=== PATIENT | female | born 1940 | race Caucasian/White ===

== ENCOUNTER 2025-01-15 06:32 | Day surgery (SDC) | payer MEDICARE, SELFPAY ==
[2025-01-15] VITALS (16 sets, daily range): BP systolic 138–165; BP diastolic 71–117; BMI 26.3
[2025-01-15 07:29] LABS: % Basophils 1.2 % (0-2); % Eosinophils 5.6 % (0-6); % Immature Granulocytes 0.5 % (0-0.5); % Lymphocytes 25.3 % (20.5-51.1); % Monocytes 11.4 % (1.7-9.3); Absolute Basophils 0.1 10^3/uL (0-0.2); Absolute Eosinophils 0.4 10^3/uL (0-0.7); Absolute Lymphocytes 1.7 10^3/uL (1.2-3.4); Absolute Monocytes 0.8 10^3/uL (0.1-0.6); Absolute Neutrophils 3.7 10^3/uL (1.4-6.5); Hemoglobin 11.9 g/dL (12.0-16.0); Mean Corp Hgb Conc. 33.1 g/dL (33.0-37.0); Mean Corpuscular Hgb 32.8 pg (27.0-31.0); Mean Corpuscular Volume 99.2 fL (81.0-99.0); Nucleated Red Blood Cells % 0 %; Platelet Count 272 10^3/uL (130-400); Red Blood Cell Count 3.63 10^6/uL (4.20-5.40); Red Cell Dist. Width 13.2 % (11.5-14.5); White Blood Cell Count 6.6 10^3/uL (4.8-10.8)
[2025-01-15] MEDS: LOW STRENGTH ASPIRIN 81 MG PO (07:32)
[2025-01-15 07:41] LABS: ALT (SGPT) 15 U/L (0-35); AST (SGOT) 26 U/L (14-36); Albumin 3.5 g/dl (3.5-5.0); Alkaline Phosphatase 58 U/L (38-126); Blood Urea Nitrogen 25 mg/dl (7-17); Calcium 9.3 mg/dl (8.4-10.2); Carbon Dioxide 27 mmol/L (22-30); Chloride 109 mmol/L (98-107); Estimated Creatinine Clearance 52 ml/min; Glucose 98 mg/dl (70-99); Sodium 142 mmol/L (135-145); Total Bilirubin 0.6 mg/dl (0.2-1.3); Total Protein 6.7 g/dl (6.3-8.2); eGFR > 60.00
[2025-01-15 08:28] LABS: ACT-LR - POC 292 Seconds (116-155)
[2025-01-15 08:53] LABS: ACT-LR - POC 385 Seconds (116-155)
[2025-01-15 09:16] LABS: ACT-LR - POC 226 Seconds (116-155)
[2025-01-15] MEDS: NSS 1000 IV (09:35)
--- NOTE | 2025-01-15 09:37 | ITS.CL.ANGIO ---
C[facility]orter - Angioplasty
Angioplasty
Procedure Report:
LEFT HEART CATHETERIZATION
Date of Procedure: January 15, 2025
Procedures performed:
1: Coronary angiography
2: Left ventricular hemodynamic assessment
3: Invasive physiologic lesion assessment of the left anterior descending artery
4: Percutaneous coronary intervention of the left anterior descending artery with angioplasty and placement of a 3.5 x 28 mm drug-eluting stent postdilated at high pressure with a 3.75 mm diameter noncompliant balloon
Primary Care Physician: Dr. Lady Wheeler
Primary Commercial Ocean Clammer: Dr. Beck Keenan
INDICATION: The patient is an 84-year-old woman with a past medical history significant for hypertension, rheumatoid arthritis, and new shortness of breath and dyspnea on exertion since COVID infection a few months ago. Echocardiography showed a
new LAD wall motion abnormality and EKG showed deep anterior T waves concerning for Wellen sign. She is referred for coronary angiography.
ACCESS: The patient was prepped and draped in usual sterile fashion. A 6 Romanian sheath was placed in the right radial artery using the Seldinger over the wire technique.
HEMODYNAMIC FINDINGS (mmHg):
LV(s/d,EDP): 148/9, 14
Ao(s/d,m): 148/74, 104
ANGIOGRAPHIC FINDINGS:
Single-plane Left Ventriculography in GOMEZ Projection: Not done.
Coronary Angiography:
Dominance: Right
Left Main: Normal
Left Anterior Descending: The left anterior descending artery is a large-caliber vessel that is also fairly calcified with proximal and midportion. There is a smooth proximal 30% with an eccentric calcified 60% before the takeoff of a large widely
patent diagonal branch. The mid and distal LAD have only mild luminal irregularities with normal flow.
Left Circumflex: The left circumflex is a large nondominant vessel that gives rise to 2 very large obtuse marginal branches that are widely patent with mild luminal irregularities.
Right Coronary: The right coronary artery is a large-caliber dominant vessel that gives rise to a large caliber posterior descending artery and smaller posterior left ventricular branch system. The RCA is heavily calcified throughout the AV groove
however there are no areas of more than 30% nonobstructive disease. All distal vessels have normal flow.
Physiologic lesion assessment: In light of the borderline angiographic appearance of the left anterior descending artery I chose to perform physiologic lesion assessment. The patient was pretreated with aspirin. Unfractionated heparin was given.
A 6 Romanian XB 3.5 guiding catheter was used to engage the left main. A pressure wire was advanced with the transducer positioned in the normal-appearing mid LAD. The IFR was measured at 0.86 serially consistent with flow-limiting disease.
Pullback showed the gradient was mostly at the focal lesion but there was also some gradient in the proximal LAD. In light of this I chose to proceed with an intervention of the proximal LAD disease.
Percutaneous Coronary Intervention (PCI): A short BMW wire was advanced across the lesion and predilation was performed with a 2.5 x 20 mm balloon. A Guideliner 6 Romanian was used to help deliver a 3.5 x 28 mm Xience drug-eluting stent which was
deployed to 14 williams. Next a 3.75 mm diameter noncompliant balloon was used to post dilate the stent distally at 16 williams and at 18 williams in the mid and ostial portion. Care was taken to stay within the stented margins. A loading dose of clopidogrel
600 mg was given on the table at the end of the procedure.
FINAL RESULT: 0% in-stent residual stenosis with an outstanding angiographic result and MAN-3 flow in all vessels.
Fluoroscopy Time (min): 18.7
Radiation Dose (mGy): 758
DAP (Gy.cm2): 44
Closure device: None. A TR band was applied for hemostasis at the right wrist.
Complications: None.
ASSESSMENT:
1: Successful PCI of the LAD with placement of a drug-eluting stent guided by physiologic lesion assessment as described above.
2: Normal left ventricular filling pressures.
CONCLUSIONS and RECOMMENDATIONS:
1: Routine post drug-eluting stent placement medical therapy and monitoring. The patient will need dual antiplatelet therapy with aspirin and Plavix ideally uninterrupted for a year and aspirin 81 mg daily indefinitely. I will switch omeprazole to
pantoprazole given the possible interaction with clopidogrel. Stop Imdur. Start statin therapy atorvastatin 40 mg daily
2: Routine clinical follow-up with Dr. Keenan as scheduled. Suggest repeating echocardiography in 6 weeks to reassess LV function post stenting.
Charmaine Anderson M.D.
Copy to: Dr. Lady Wheeler
--- NOTE | 2025-01-15 13:55 | W.PN.UPDATE ---
Update Note
Progress Note Update
Pt seen post LAD PCI. Right radial cath site without ht/bleeding, non tender. OOB ambulating, urinating without difficulty. Post EKG NSR 70s w/inferolateral TWI as before, no acute changes. Pt understands importance of DAPT w/asa, plavix. Limited
plavix rx sent to local [facility] as pt is staying at her son's for the next few days. Full rx sent to [facility] in [place]. Will discontinue omeprazole for protonix d/t plavix interaction, and new start atorvastatin 40mg daily. Cardiac rehab consulted.
Followup with Dr. Keenan as scheduled. Home later today if cath site/tele remain stable.
== END 2025-01-15 15:06 | disposition home or self-care (01) ==
LOC: CATH 06:32
PROVIDERS: ATTENDING PHYSICIAN Internal Medicine Interventional Cardiology; FAMILY PHYSICIAN Family Medicine; OTHER PHYSICIAN Internal Medicine Cardiovascular Disease
DX: I25.10 Atherosclerotic heart disease of native coronary artery without angina pectoris (principal); I10 Essential (primary) hypertension; M06.9 Rheumatoid arthritis, unspecified; R06.02 Shortness of breath; R06.09 Other forms of dyspnea; Z86.16 Personal history of COVID-19; I25.5 Ischemic cardiomyopathy; Z79.02 Long term (current) use of antithrombotics/antiplatelets; Z79.82 Long term (current) use of aspirin; Z79.899 Other long term (current) drug therapy
CPT/HCPCS: 93799; 80053; 85025; 85347; 93005; 93458; C1725; C1769; C1874; C1887; C1894; C9600; Q9967